=== PATIENT | female | born 1990 | race African-American/Black ===

== ENCOUNTER 2017-09-14 09:18 | Emergency (ER) | payer MEDICAID ==
[~2017-09-14] VITALS: Ht 152.4 cm; Wt 70.0 kg
[2017-09-14] MEDS ORDERED: TORADOL PO (09:50)
[2017-09-14] MEDS ORDERED: [UNRECOGNIZED DRUG - OTHER] EX (09:50)
[2017-09-14] MEDS ORDERED: DOXYCYC MONO100 M1 PO (09:50)
[2017-09-14 10:08] VITALS: BP 144/73
== END 2017-09-14 10:08 | disposition home or self-care (01) | DRG 607 ==
LOC: ED 09:18
DX: L73.2 Hidradenitis suppurativa (principal)

== ENCOUNTER 2017-10-21 09:16 | Emergency (ER) | payer MEDICAID ==
[~2017-10-21] VITALS: Ht 175.3 cm; Wt 80.0 kg
[~2017-10-21 09:16] MED LIST: DOXYCYC MONO100 M1 PO; TORADOL PO; [UNRECOGNIZED DRUG - OTHER] EX
[2017-10-21 10:11] LABS: HEMATOCRIT 35.3 % (37.0-47.0); HEMOGLOBIN 11.4 g/dl (12.0-16.0); IMMATURE GRANULOCYTES 0.1 % (0.0-1.0); MEAN CELL VOLUME 82.7 fL CALC (80.0-100.0); MEAN CORPUSCULAR HGB 26.7 pG CALC (26.0-32.0); MEAN CORPUSCULAR HGB CONC 32.3 g/L CALC (32.0-36.0); NEUT# 4.36 thou/uL (2.00-7.15); RED BLOOD COUNT 4.27 mill/uL (4.20-5.60); RED CELL DISTRI WIDTH 13.9 % (11.5-15.5)
[2017-10-21 10:20] LABS: URINE BLOOD DIPSTICK MODERATE (NEGATIVE); URINE COLOR YELLOW; URINE GLUCOSE - DIPSTICK NEGATIVE (NEGATIVE); URINE KETONE TRACE mg/dL (NEGATIVE); URINE NITRITE - DIPSTICK NEGATIVE (Negative); URINE PROTEIN - DIPSTICK TRACE mg/dL (NEG-TRACE)
[2017-10-21 10:21] LABS: ANION GAP 15 (6-22 (CALC)); BUN 8 mg/dL (7-17); BUN/CREATININE RATIO 11 (12-20 (CALC)); CALCIUM 9.5 mg/dL (8.4-10.2); CARBON DIOXIDE 22 mmol/l (22-30); CHLORIDE 107 mmol/l (95-108); CREATININE 0.7 mg/dL (0.5-1.0); GFR > 60 ML/MIN (>=60 (CALC)); GFR FOR AFR.AMER. > 60 ML/MIN (>=60 (CALC)); GLUCOSE 87 mg/dL (65-105); POTASSIUM 3.7 mmol/l (3.5-5.1); SODIUM 140 mmol/l (137-146)
[2017-10-21 10:25] LABS: URINE BILIRUBIN - DIPSTICK SMALL (NEGATIVE); URINE CLARITY SL CLOUDY; URINE LEUK ESTERASE SMALL (NEGATIVE)
[2017-10-21 10:29] LABS: URINE BACTERIA FEW hpf; URINE EPITHELIAL CELLS MODERATE EPI/hpf (0-FEW); URINE RBC 25-50 RBC/hpf (0-5)
[2017-10-21 10:36] LABS: BETA-HCG, QUANT(RESULT NUMBER) 979 mIU/mL
[2017-10-21 11:26] VITALS: BP 103/61
== END 2017-10-21 11:15 | disposition home or self-care (01) | DRG 782 ==
LOC: ED 09:16
PROVIDERS: Family Medicine
DX: O26.851 Spotting complicating pregnancy, first trimester (principal); Z3A.01 Less than 8 weeks gestation of pregnancy

== ENCOUNTER 2017-10-22 23:48 | Emergency (ER) | payer MEDICAID ==
[~2017-10-22] VITALS: Ht 175.3 cm; Wt 73.4 kg
[2017-10-23 00:53] LABS: HEMATOCRIT 37.2 % (37.0-47.0); HEMOGLOBIN 12.4 g/dl (12.0-16.0); IMMATURE GRANULOCYTES 0.2 % (0.0-1.0); MEAN CELL VOLUME 81.6 fL CALC (80.0-100.0); MEAN CORPUSCULAR HGB 27.2 pG CALC (26.0-32.0); MEAN CORPUSCULAR HGB CONC 33.3 g/L CALC (32.0-36.0); NEUT# 6.06 thou/uL (2.00-7.15); RED BLOOD COUNT 4.56 mill/uL (4.20-5.60); RED CELL DISTRI WIDTH 13.9 % (11.5-15.5)
[2017-10-23 00:54] LABS: URINE BILIRUBIN - DIPSTICK NEGATIVE (NEGATIVE); URINE BLOOD DIPSTICK LARGE (NEGATIVE); URINE COLOR YELLOW; URINE GLUCOSE - DIPSTICK NEGATIVE (NEGATIVE); URINE KETONE TRACE mg/dL (NEGATIVE); URINE LEUK ESTERASE TRACE (NEGATIVE); URINE NITRITE - DIPSTICK NEGATIVE (Negative); URINE PROTEIN - DIPSTICK TRACE mg/dL (NEG-TRACE); URINE SPECIFIC GRAVITY >=1.030; URINE UROBILINOGEN - DIPSTICK 0.2 E.U./dL (0.2)
[2017-10-23 01:19] LABS: URINE BACTERIA FEW hpf; URINE CLARITY SL CLOUDY; URINE RBC 50-100 RBC/hpf (0-5)
[2017-10-23] MEDS ORDERED: PERCOCET 5/325M1 TAB PO (01:39)
[2017-10-23 02:01] VITALS: BP 122/65
== END 2017-10-23 02:10 | disposition home or self-care (01) | DRG 782 ==
LOC: ED 23:48
PROVIDERS: Emergency Medicine
DX: O46.91 Antepartum hemorrhage, unspecified, first trimester (principal); Z3A.00 Weeks of gestation of pregnancy not specified

== ENCOUNTER 2023-01-27 12:22 | Emergency (ER) | payer MEDICARE, MEDICAID ==
[2023-01-27] VITALS (10 sets, daily range): BP systolic 109–139; BP diastolic 78–94
[~2023-01-27] VITALS: Ht 175.3 cm; Wt 107.5 kg
[~2023-01-27 12:22] MED LIST changes: +PERCOCET 5/325M1 TAB PO
[2023-01-27] MEDS ORDERED: ZYRTEC10 MG PO (14:37)
[2023-01-27] MEDS ORDERED: MEDDOSEPAK PO (14:37)
[2023-01-27] MEDS ORDERED: ZPAK PO (14:37)
[2023-01-27] MEDS ORDERED: ALLERGY RE50 MCG/ACT (14:37)
== END 2023-01-27 15:00 | disposition home or self-care (01) ==
LOC: ED 12:22
DX: U07.1 COVID-19 (principal); J32.9 Chronic sinusitis, unspecified

== ENCOUNTER 2023-03-31 17:46 | Emergency (ER) | payer MEDICARE, OTHER ==
[~2023-03-31] VITALS: Ht 175.3 cm; Wt 108.0 kg
[~2023-03-31 17:46] MED LIST changes: +ALLERGY RE50 MCG/ACT; +MEDDOSEPAK PO; +ZPAK PO; +ZYRTEC10 MG PO
[2023-03-31 18:18] VITALS: BP 143/94
[2023-03-31] MEDS ORDERED: POLYMYXIN B SUL1 SOL IO (18:29)
[2023-03-31 18:31] VITALS: BP 140/84
[2023-03-31 18:34] VITALS: BP 140/84
== END 2023-03-31 18:46 | disposition home or self-care (01) ==
LOC: ED 17:46
DX: H10.9 Unspecified conjunctivitis (principal)

== ENCOUNTER 2023-12-01 17:41 | Emergency (ER) | payer MEDICARE, OTHER ==
[~2023-12-01] VITALS: Ht 175.3 cm; Wt 105.0 kg
[~2023-12-01 17:41] MED LIST changes: +POLYMYXIN B SUL1 SOL IO
[2023-12-01 17:49] VITALS: BP 162/100
[2023-12-01 17:50] VITALS: BP 160/99
[2023-12-01] MEDS ORDERED: NITROGLYCERIN 2% OINT UD 1 GM/PAK TD ONE (17:55)
[2023-12-01] MEDS ORDERED: ASPIRIN 81 MG/TAB PO ONE (17:55)
[2023-12-01 19:06] LABS: BASO% 0.2 % (0-3); HEMATOCRIT 45.2 % (37.0-47.0); HEMOGLOBIN 13.7 g/dl (12.0-16.0); LYMPH% 39.7 % (15-41); MEAN CELL VOLUME 86.8 fL CALC (80.0-100.0); MEAN CORPUSCULAR HGB 26.3 pG CALC (26.0-32.0); MEAN CORPUSCULAR HGB CONC 30.3 g/dL CAL (32.0-36.0); MONO% 3.6 % (2-13); NEUT# 3.47 thou/uL (2.00-7.15); NEUT% 54.5 % (42-76); RED BLOOD COUNT 5.21 mill/uL (4.20-5.60); RED CELL DISTRI WIDTH 15.2 % (11.5-15.5)
[2023-12-01 19:22] LABS: ALBUMIN 4.6 g/dL (3.2-5.0); ALKALINE PHOSPHATASE 93 u/l (38-126); ANION GAP 12 (6-22 (CALC)); BILIRUBIN, TOTAL 0.3 mg/dL (0.02-1.3); BUN 10 mg/dL (7-17); BUN/CREATININE RATIO 12 (12-20 (CALC)); CARBON DIOXIDE 25 mmol/l (22-30); CHLORIDE 108 mmol/l (95-108); CREATININE 0.8 mg/dL (0.5-1.0); GFR FOR AFR.AMER. > 60 ML/MIN (>=60 (CALC)); GFR OTHER RACES > 60 ML/MIN (>=60 (CALC)); POTASSIUM 3.4 mmol/l (3.5-5.1); SGOT/AST 31 u/l (14-36); SODIUM 141 mmol/l (137-146); TOTAL PROTEIN 8.7 g/dL (6.3-8.2)
[2023-12-01] MEDS ORDERED: POTASSIUM CHLORIDE 20 MEQ/PKT POWDER PO ONE (20:00)
[2023-12-01 20:32] VITALS: BP 132/70
[2023-12-01] MEDS ORDERED: METHOCARBAMOL 500 MG/TAB PO ONE (20:55)
[2023-12-01] MEDS ORDERED: KETOROLAC TROMETHAMINE 30 MG/ML SDV IV ONE (20:55)
[2023-12-01 20:56] LABS: URINE BILIRUBIN - DIPSTICK Negative (NEGATIVE); URINE BLOOD DIPSTICK Negative (NEGATIVE); URINE COLOR Yellow; URINE GLUCOSE - DIPSTICK Negative (NEGATIVE); URINE KETONE Negative (NEGATIVE); URINE LEUK ESTERASE Negative (NEGATIVE); URINE NITRITE - DIPSTICK Negative (Negative); URINE PROTEIN - DIPSTICK Negative (NEG-TRACE); URINE SPECIFIC GRAVITY 1.015; URINE UROBILINOGEN - DIPSTICK 0.2 E.U./dL (0.2)
[2023-12-01 21:00] VITALS: BP 127/81
[2023-12-01 21:03] LABS: D-DIMER 0.46 mg/L (0.19-0.60)
[2023-12-01 21:06] LABS: ACT PARTIAL THROMBO TIME 25.4 SECONDS (20.0-32.5); PROTHROMBIN TIME 9.6 SECONDS (9.0-12.5)
[2023-12-01 21:30] VITALS: BP 126/80
[2023-12-01 21:42] VITALS: BP 126/80
== END 2023-12-01 21:55 | disposition home or self-care (01) ==
LOC: ED 17:41
PROVIDERS: Emergency Medicine
DX: M94.0 Chondrocostal junction syndrome [Tietze] (principal); F17.200 Nicotine dependence, unspecified, uncomplicated; R07.9 Chest pain, unspecified; R06.02 Shortness of breath